=== PATIENT | female | born 1945 | race Caucasian/White ===

== ENCOUNTER 2022-08-01 13:40 | Outpatient (CLI) | payer MEDICARE, OTHER | END 2022-08-01 13:41 | disposition home or self-care (01) | LOC: CSHRAD 13:40 | PROVIDERS: ATTEND Physician Assistant | DX: R05.3 Chronic cough (principal) | CPT/HCPCS: 71046 ==

== ENCOUNTER 2022-08-29 13:18 | Outpatient (CLI) | payer MEDICARE, OTHER | END 2022-08-29 13:19 | disposition home or self-care (01) | LOC: CSHRAD 13:18 | PROVIDERS: ATTEND Student in an Organized Health Care Education/Training Program | DX: J18.9 Pneumonia, unspecified organism (principal) | CPT/HCPCS: 71046 ==

== ENCOUNTER 2022-09-11 11:45 | Outpatient (CLI) | payer MEDICARE, OTHER | END 2022-09-11 11:46 | disposition home or self-care (01) | LOC: CSHCT 11:45 | PROVIDERS: ATTEND Student in an Organized Health Care Education/Training Program | DX: J18.9 Pneumonia, unspecified organism (principal); I31.39 Other pericardial effusion (noninflammatory); R91.8 Other nonspecific abnormal finding of lung field; I70.90 Unspecified atherosclerosis | CPT/HCPCS: 71250 ==

== ENCOUNTER 2022-10-04 17:36 | Emergency (ER) | payer OTHER, MEDICARE | END 2022-10-04 20:11 | disposition home or self-care (01) | LOC: CSHERS 17:36 | DX: S52.501A Unspecified fracture of the lower end of right radius, initial encounter for closed fracture (principal); S52.611A Displaced fracture of right ulna styloid process, initial encounter for closed fracture; I10 Essential (primary) hypertension; W01.0XXA Fall on same level from slipping, tripping and stumbling without subsequent striking against object, initial encounter; Z79.899 Other long term (current) drug therapy | CPT/HCPCS: 70450 ==

== ENCOUNTER 2023-02-16 14:14 | Outpatient (CLI) | payer MEDICARE, OTHER | END 2023-02-16 14:15 | disposition home or self-care (01) | LOC: CSHMAMMO 14:14 | PROVIDERS: ATTEND Internal Medicine Endocrinology, Diabetes & Metabolism | DX: M81.8 Other osteoporosis without current pathological fracture (principal) | CPT/HCPCS: 77080 ==

== ENCOUNTER 2024-07-06 09:53 | Outpatient (CLI) | payer MEDICARE, OTHER | END 2024-07-06 09:54 | disposition home or self-care (01) | LOC: CSHMAMMO 09:53 | PROVIDERS: ATTEND Student in an Organized Health Care Education/Training Program | DX: Z12.31 Encounter for screening mammogram for malignant neoplasm of breast (principal) | CPT/HCPCS: 77063; 77067 ==

== ENCOUNTER 2025-02-27 10:42 | Outpatient (CLI) | payer MEDICARE, OTHER | END 2025-02-27 10:43 | disposition home or self-care (01) | LOC: CSHMAMMO 10:42 | PROVIDERS: ATTEND Internal Medicine Endocrinology, Diabetes & Metabolism | DX: M81.8 Other osteoporosis without current pathological fracture (principal); M85.88 Other specified disorders of bone density and structure, other site | CPT/HCPCS: 77080 ==

== ENCOUNTER 2025-03-07 14:44 | Outpatient (CLI) | payer MEDICARE, OTHER | END 2025-03-07 14:45 | disposition home or self-care (01) | LOC: CSHRAD 14:44 | PROVIDERS: ATTEND Student in an Organized Health Care Education/Training Program | DX: M25.552 Pain in left hip (principal); Z91.81 History of falling; M16.12 Unilateral primary osteoarthritis, left hip; M19.09 Primary osteoarthritis, other specified site ==